=== PATIENT | male | born 1960 | race Caucasian/White ===

== ENCOUNTER 2020-08-22 00:42 | Emergency (ER) | payer MEDICAID ==
[~2020-08-22] VITALS: Ht 175.3 cm; Wt 90.9 kg
[2020-08-22] MEDS ORDERED: glucagon, human recombinant 1mg kit IV ONE (01:55)
[2020-08-22] MEDS ORDERED: nitroGLYCERIN 0.4mg SUBLingual tab SL PRN (01:55)
[2020-08-22] MEDS ORDERED: normal saline 1000ML IV soln IVB ONE (01:55)
[2020-08-22 03:10] LABS: BASOPHILS % (AUTO) 0.5 % (0-1); EOSINOPHILS # (AUTO) 0.1 X10'3 (0-0.9); EOSINOPHILS % (AUTO) 0.8 % (0-6); HEMATOCRIT 41.3 % (42.0-52.0); HEMOGLOBIN 13.7 g/dl (14.0-17.9); LYMPHOCYTES # (AUTO) 1.1 X10'3 (1.1-4.8); LYMPHOCYTES % (AUTO) 12.1 % (21-51); MEAN CORPUSCULAR HEMOGLOBIN 29.8 PG (27.0-31.0); MEAN CORPUSCULAR HGB CONC 33.1 g/dL (33.0-36.5); MEAN CORPUSCULAR VOLUME 90.3 FL (78-98); MEAN PLATELET VOLUME 8.2 FL (7.4-10.4); MONOCYTES # (AUTO) 0.8 X10'3 (0-0.9); MONOCYTES % (AUTO) 8.1 % (2-12); NEUTROPHILS # (AUTO) 7.4 X10'3 (1.8-7.7); NEUTROPHILS % (AUTO) 78.5 % (42-75); PLATELET COUNT 245 X10'3 (140-440); RED BLOOD COUNT 4.57 X10'6 (4.70-6.10); RED CELL DISTRIBUTION WIDTH 13.5 % (11.5-14.5); WHITE BLOOD COUNT 9.4 X10'3 (4.5-11.0)
--- NOTE | 2020-08-22 03:25 | NUR ---
Patient resting comfortably, had vomitting episode and thinks FB is gone. Will continue to monitor.
[2020-08-22 04:19] LABS: GLUCOSE 169 MG/DL (70-104); POTASSIUM 3.6 MMOL/L (3.5-5.1); SODIUM 143 MMOL/L (135-145)
[2020-08-22 04:20] LABS: ALANINE AMINOTRANSFERASE 21 U/L (12-78); ALBUMIN 3.9 G/DL (3.4-5.0); ALBUMIN/GLOBULIN RATIO 1.1 (1.1-1.5); ALKALINE PHOSPHATASE 85 IU/L (46-116); ANION GAP 12 (8-16); ASPARTATE AMINO TRANSFERASE 17 U/L (10-37); BILIRUBIN,TOTAL 1.2 MG/DL (0.1-1.0); BLOOD UREA NITROGEN 14 MG/DL (7-18); BUN/CREATININE RATIO 14.1 (5.4-32.0); CALCIUM 9.1 MG/DL (8.5-10.1); CHLORIDE 108 MMOL/L (99-107); CREATININE 0.99 MG/DL (0.60-1.10); TOTAL CARBON DIOXIDE 23.2 MMOL/L (24-32); TOTAL PROTEIN 7.3 G/DL (6.4-8.2); eGFR 77 ML/MIN
[2020-08-22] MEDS ORDERED: PANT-47 PO (04:26)
[2020-08-22] MEDS ORDERED: CEPH-585 PO (04:26)
--- NOTE | 2020-08-22 05:15 | NUR ---
Dr. Forrest has been paged and patient will go to GI Lab for FB removal.
--- NOTE | 2020-08-22 05:27 | NUR ---
Patient's at bedside.
--- NOTE | 2020-08-22 05:50 | NUR ---
Patient to GI lab.
[2020-08-22] MEDS ORDERED: fentaNYL/PF 50MCG/1 ML 2ML syringe ONE (05:57)
[2020-08-22] MEDS ORDERED: LIDOcaine Viscous 15ml cup ONE (05:57)
[2020-08-22] MEDS ORDERED: MIDAZolam 1 MG/ML 5ML VIAL ONE (05:57)
[2020-08-22 06:00] VITALS: BP 128/85
--- NOTE | 2020-08-22 06:33 | NUR ---
PATIENT STILL IN GI LAB.
[2020-08-22 06:50] VITALS: BP 112/67
[2020-08-22 07:00] VITALS: BP 110/67
[2020-08-22 07:10] VITALS: BP 104/63
[2020-08-22 07:20] VITALS: BP 110/68
--- NOTE | 2020-08-22 07:51 | NUR ---
patient back from the GI lab,asleep at this time. at bedside.Call light within reach.
[2020-08-22 10:22] VITALS: BP 102/62
== END 2020-08-22 10:26 | disposition home or self-care (01) ==
LOC: ER 00:43
DX: T18.128A Food in esophagus causing other injury, initial encounter (principal); L03.116 Cellulitis of left lower limb; F12.90 Cannabis use, unspecified, uncomplicated; F15.90 Other stimulant use, unspecified, uncomplicated; Z98.890 Other specified postprocedural states; Z79.899 Other long term (current) drug therapy; X58.XXXA Exposure to other specified factors, initial encounter; Y93.89 Activity, other specified; Y92.89 Other specified places as the place of occurrence of the external cause; Y99.8 Other external cause status
CPT/HCPCS: 36415; 43247; 43248; 80053; 85025; 96361; 96374; 99152; 99285; J1610; J2250; J3010; J7030; J7040; A4620